=== PATIENT | female | born 1980 | race Caucasian/White ===

== ENCOUNTER 2020-05-16 20:43 | Emergency (ER) | payer OTHER, SELFPAY ==
[2020-05-16 20:45] VITALS: BP 159/105; PULSE 85; RESP 14; TEMP 37.3; O2SAT 98; BMI 27.9
--- NOTE | 2020-05-16 21:02 | CT_ITS ---
STUDY: CT ABDOMEN AND PELVIS WITHOUT CONTRAST REASON FOR EXAM: Female, 40 years old. RLQ PAIN X 3 WEEKS RADIATION DOSAGE (If Supplied By Facility): CTDIvol = ( 7.65 ) mGy, DLP = ( 376.42 ) mGycm TECHNIQUE: Transaxial images were obtained from the dome of the diaphragm to the symphysis pubis with oral contrast, and without intravenous contrast. Sagittal and coronal images were reconstructed. Individualized dose optimization techniques were used for this CT. COMPARISON: None. FINDINGS: The visualized lung bases are unremarkable. Normal liver. No intrahepatic biliary duct dilatation or liver mass. There is non-visualization of the gallbladder, which may be secondary to either contraction or a prior cholecystectomy. Normal spleen. Mild swelling and peripancreatic edema/stranding is present around the head and uncinate process likely representing mild pancreatitis. The remaining aspects of the pancreas are normal. Normal bilateral adrenal glands. Normal right kidney. Normal left kidney. . No hydronephrosis or renal masses. No large stones. Normal visualized stomach. Normal small intestine. Normal colon. No bowel dilatation or obstruction. No free air or free fluid. The appendix is visualized and appears normal. There is minimal atherosclerotic calcification of the abdominal aorta, without a demonstrated aneurysm. Normal inferior vena cava. Normal retroperitoneum. Normal urinary bladder. Unremarkable uterus and adnexa. Normal abdominal wall. Normal osseous structures. CT/Abdomen/Pel W ORAL Cont Only IMPRESSION: 1. Mild swelling and peripancreatic edema/stranding is present around the head and uncinate process likely representing mild pancreatitis. The remaining aspects of the pancreas are normal. Electronically Signed: Wilver Edwards MD at 23:26 EDT , Service support ,
[2020-05-16 21:27] LABS: Absolute Lymphocyte Count 2.92 X10^3/uL (0.83-4.51); Absolute Neutrophil Count 6.7 X10^3/uL (2.0-7.7); Basophil# 0.05 X10^3/uL; Basophil% 0.5 % (0-1); Eosinophil# 0.18 X10^3/uL; Eosinophils% 1.6 % (0-5); Hematocrit 39.7 % (37-47); Hemoglobin 13.3 g/dL (12.0-15.0); Lymphocyte # 2.92 X10^3/ul (4.0); Lymphocyte % 26.8 % (19-41); Mean Corp Hgb Conc 33.5 g/dL (32-36); Mean Corpuscular Hgb 31.2 pg (27.0-32.0); Mean Corpuscular Volume 93.2 fL (81-99); Mean Platelet Vol. 10.5 fl (6.2-12.0); Monocyte# 1.02 X10^3/uL; Monocyte% 9.3 % (0-10); NRBC Flagged by Analyzer 0 % (0-5); Neutrophil % 61.4 % (47-70); Platelet Count 353 K/mm3 (150-450); RBC Distribution Width CV 11.6 % (11.6-14.6); RBC Distribution Width SD 39.2 fl (35.1-43.9); Red Blood Count 4.26 M/mm3 (4.2-5.4); White Blood Count 10.9 K/mm3 (4.4-11.0)
[2020-05-16 21:39] LABS: Mucous, Urine 0 SEEN /hpf (<or=2+); Squamous Epithelial Cells - UA 0 SEEN /hpf (5-10)
[2020-05-16] MEDS: 0.9% Normal Saline 1,000 ML 1000 ML IV (21:44)
--- NOTE | 2020-05-16 21:44 | ED.RN ---
pt verifies allergy to ct dye was sneezing longer than 5 years ago at [facility]. per pt she feels comfortable getting iv contrast dye
[2020-05-16 21:51] LABS: AST(SGOT) 13 U/L (15-37); Alanine Aminotransfer ALT/SGPT 24 U/L (13-56); Albumin, Serum 3.7 g/dL (3.2-5.0); Alkaline Phosphatase 94 U/L (45-117); Anion Gap 6 (5-15); BUN 16 mg/dL (7-18); BUN/Creat Ratio 20.1 RATIO (10-20); Chloride 106 mmol/L (98-107); EST Glomerular Filtration Rate 85 mL/min (>60); Est Glom Filt Rate - Afr Amer 102 mL/min (>60); Estimated Creatinine Clearance 73.93 ml/min; Globulin 3.7 g/dL (2.2-4.2); Glucose 123 mg/dL (74-106); Lipase 131 U/L (73-393); Potassium 3.2 mmol/L (3.5-5.1); Protein, Total 7.4 g/dL (6.4-8.2); Sodium Level 140 mmol/L (136-145)
[2020-05-16 22:11] LABS: Color, Urine Yellow (Yellow); Glucose, Dipstick Normal (Normal); Ketone-Dipstick Negative (Negative); Leukocyte Esterase-Dipstick 25 /ul (Negative); Nitrite-Dipstick Negative (Negative); Occult Blood-Urine 50 /ul (Negative); Protein-Dipstick Negative (Negative); Specific Gravity, Urine 1.015 (1.002-1.030); Urine Bilirubin Dipstick Negative (Negative); Urine Clarity Clear (Clear); Urine Urobilinogen Normal (Normal)
[2020-05-16 22:18] LABS: Internal QC Validated? YES +Cl - CLEAR BKGD; Pregnancy, Urine Negative Negative
[2020-05-16 22:27] LABS: White Blood Cells 0-5 SEEN /hpf (0-5)
[2020-05-16 22:28] LABS: Bacteria 1+ /hpf (None Seen); Red Blood Cells-Urine 0-5 SEEN /hpf (0-5)
[2020-05-16 23:14] VITALS: BP 125/88; PULSE 83; RESP 17; O2SAT 97
[2020-05-16 23:16] VITALS: BP 125/88; PULSE 83; RESP 17; TEMP 37.3; O2SAT 97
--- NOTE | 2020-05-16 23:38 | ED.DCSUM_ITS ---
History of Present Illness Chief Complaint: Abd Pain Informant: Patient Narrative: 40-year-old female with no significant past medical history presents with abdominal pain. States it is been present for the past 2 weeks. Intermittent in nature. States that it is in her right mid abdomen but radiates into the middle of her stomach. Admits to some mild back pain. States it is aching in nature. No relieving or worsening factors. Does admit to some nausea. Denies any urinary symptoms. Denies any vaginal bleeding or discharge. Past Medical History - Allergies and Home Meds Allergies/Adverse Reactions: Allergies Iodinated Contrast Media Adverse Reaction (Verified 05/16/20 21:44) NEEDS FOLLOW-UP [email or web address] Primary Care Physician: Christy Sampson MD [Primary Care Provider] - Prior records reviewed: Yes Past Medical History: None Surgical History: no surgical history Lives: Spouse/ Significant Other Smoking Status: Never smoker Alcohol: None Drugs: None Review of Systems General: Denies: Chills, Fever, Sweats Eyes: Denies: Visual changes - bilaterally, Diplopia ENT: Denies: Rhinorrhea, Sore throat Cardiovascular: Denies: Chest pain, Palpitations Respiratory: Denies: Dyspnea, Cough, Dyspnea on exertion Gastrointestinal: Reports: Abdominal pain, Nausea. Denies: Vomiting, Diarrhea, Melena, Hematochezia Genitourinary: Denies: Dysuria, Hematuria, Frequency Musculoskeletal: Denies: Back pain, Extremity Pain Skin: Denies: Rash, Wounds Neurological: Denies: Headache, Weakness, Numbness Physical Exam Vital Signs/Narrative: Vital Signs Temp Pulse Resp BP Pulse Ox 05/16/20 23:16 99.2 F H 83 17 125/88 H 97 05/16/20 23:14 83 17 125/88 H 97 05/16/20 20:45 99.2 F H 85 14 159/105 H 98 Inital Vital Signs reviewed: Yes General: Well nourished, Well developed, No Acute Distress Head: Normocephalic, Atraumatic Eyes: Perrl, EOMI ENT: Moist mucous membranes, No rhinorrhea Neck: Supple, Nontender Cardiovascular: Regular rate, Regular rhythm, No murmurs Respiratory: No distress, CTA bilaterally, Chest nontender Abdomen: Soft, Nondistended, Normal bowel sounds, - - TTP in the midabdomen without reboud or rigidity. Back: Nontender, Normal Inspection Extremities: Nontender, No edema Skin: Normal color, No rash Neurological: Alert, Oriented x3, Cranial nerves II-XII grossly intact, Normal Strength, Normal Sensation Psychological: Normal affect, Normal Mood Diagnostic/Tx/Re-eval Clinical Impression(s) from Imaging Studies Abdomen CT 05/16/20 21:02 IMPRESSION: 1. Mild swelling and peripancreatic edema/stranding is present around the head and uncinate process likely representing mild pancreatitis. The remaining aspects of the pancreas are normal. Electronically Signed: Wilver Edwards MD at 23:26 EDT , Service support , Laboratory Data 05/16/20 05/16/20 05/16/20 21:13 21:13 21:35 WBC 10.9 RBC 4.26 Hgb 13.3 Hct 39.7 MCV 93.2 MCH 31.2 MCHC 33.5 RDW Std Deviation 39.2 RDW Coeff of Momo 11.6 Plt Count 353 MPV 10.5 Immature Gran % (Auto) 0.400 Neut % (Auto) 61.4 Lymph % (Auto) 26.8 [place] % (Auto) 9.3 Eos % (Auto) 1.6 Baso % (Auto) 0.5 Absolute Neuts (auto) 6.7 Absolute Lymphs (auto) 2.92 Nucleated RBC % 0 Sodium 140 Potassium 3.2 L Chloride 106 Carbon Dioxide 28.0 Anion Gap 6 BUN 16 Creatinine 0.80 Estim Creat Clear Calc 73.93 Est GFR (MDRD) Af Amer 102 Est GFR (MDRD) Non-Af 85 BUN/Creatinine Ratio 20.1 H Glucose 123 H Calcium 9.0 Total Bilirubin 0.30 AST 13 L ALT 24 Alkaline Phosphatase 94 Total Protein 7.4 Albumin 3.7 Globulin 3.7 Albumin/Globulin Ratio 1.0 Lipase 131 Urine Color Yellow Urine Clarity Clear Urine pH 8.0 Ur Specific [place] 1.015 Urine Protein Negative Urine Glucose (UA) Normal Urine Ketones Negative Urine Occult Blood 50 H Urine Nitrite Negative Urine Bilirubin Negative Urine Urobilinogen Normal Ur Leukocyte Esterase 25 H Urine RBC 0-5 SEEN Urine WBC 0-5 SEEN Ur Squamous Epith Cells 0 SEEN Urine Bacteria 1+ Urine Mucus 0 SEEN Urine Test Negative - Medical Decision Making Patient appears well nontoxic. Tenderness to palpation of the mid abdomen. Lab work within normal limits other than a hypokalemia which was replaced p.o. CT of the abdomen pelvis with p.o. contrast visualize the appendix which is normal. Does show some stranding around the pancreas with concern for mild pancreatitis. Patient had been given fluid bolus. No evidence of transaminitis or hyperbilirubinemia. Patient will be given Zofran and pain medication for home. Advised on liquid diet for 24 hours. Asked to return for new or worsening symptoms. Patient agreeable and discharged home in stable condition. Impression: 1. Pancreatitis ED Disposition - Plan for ED Patient: Disposition: Home or Assisted Living Instructions: Acute Pancreatitis Prescriptions: Oxycodone [Oxyir] 5 mg PO Q6H PRN PRN 2 Days #8 tab PRN Reason: Pain Score 1-10 Prescription Printed Ondansetron [Zofran Odt] 4 mg PO Q8H PRN PRN #10 tab PRN Reason: Nausea Prescription Printed Referrals: Christy Sampson MD [Primary Care Provider] - 2 Days
[2020-05-17] VITALS: BP 144/83; PULSE 70; RESP 16; O2SAT 98
[2020-05-17 00:05] VITALS: BP 144/73; BP 144/83; PULSE 70; RESP 16; TEMP 37.3; O2SAT 98
== END 2020-05-17 00:07 | disposition home or self-care (01) ==
PROVIDERS: Emergency Provider Emergency Medicine; PCP Internal Medicine
DX: K85.90 Acute pancreatitis without necrosis or infection, unspecified (principal)
CPT/HCPCS: 74176; 80053; 81001; 81025; 83690; 85025; 99281; 99284; J7030